=== PATIENT | female | born 1960 | race Caucasian/White ===

== ENCOUNTER 2019-04-30 22:21 | Emergency (ER) | payer SELFPAY ==
[~2019-04-30] VITALS: Ht 160 cm; Wt 99.3 kg
[2019-05-01] MEDS ORDERED: KETOROLAC 60 MG/2 ML VIAL IM ONE (00:15)
[2019-05-01] MEDS ORDERED: ORPHENADRINE 60 MG/2 ML (NORFLEX) AMP IM ONE (00:15)
[2019-05-01] MEDS ORDERED: TRAM-42 PO (01:06)
[2019-05-01] MEDS ORDERED: CYCL10TA9 PO (01:06)
[2019-05-01] MEDS ORDERED: METH4TAB PO (01:06)
--- NOTE | 2019-05-01 01:06 | ED Upper Extremity ---
General Chief Complaint: Upper Extremity Stated Complaint: R SHOULDER/ARM PAIN Nursing Triage Note: c/o RIGHT SHOULDER, ARM PAIN SINCE THIS AM DENIES INJURY. DENIES NUMBNESS OR TINGLING. PAIN OF 8/10. HAS USED HYDROCODONE AND IBUPROFEN AT HOME WITH LITTLE RELIEF. Nursing Sepsis Screen: No Definite Risk Source: patient History of Present Illness Date Seen by Provider: May 01, 2019 Time Seen by Provider: 00:01 Initial Comments PT ARRIVES VIA POV C/O RIGHT SHOULDER PAIN SINCE LAST PM, STATES PAIN BEGAN DURING THE NIGHT AND HAS CONTINUED ALL DAY TODAY NO INJURY NO PARESTHESIAS OR MOTOR DEFICITS NO NECK OR BACK PAIN NO RADIATION OF PAIN NO CHEST PAIN OR SHORTNESS OF BREATH STATES ANY MOVEMENT OF ARM CAUSES INCREASED PAIN NO PRIOR PROBLEMS WITH THIS SHOULDER PT IS RIGHT HANDED NO INJURY, BUT PT STATES THAT THEY JUST GOT BACK FROM [place] ON SUNDAY NIGHT, AND YESTERDAY, SHE UNLOADED THE CAR, LIFTING ALOT OF VERY HEAVY THINGS, ETC. STATES SHE TOOK HER 'S HYDROCODONE EARLIER TODAY AND IT HELPED A LITTLE BIT, DID IBUPROFEN, BUT HAS NOT TAKEN ANY MORE OF EITHER ONE OF THEM PCP: NONE Allergies and Home Medications Allergies Coded Allergies: codeine (Verified Allergy, Unknown, 05/01/19) Home Medications Cyclobenzaprine HCl 10 Mg Tablet, 10 MG PO Q8H Prescribed by: SAHIL RUSSELL on 05/01/19105 Methylprednisolone 4 Mg Tab.ds.pk, 4 MG PO UD Prescribed by: SAHIL RUSSELL on 05/01/19105 Tramadol HCl 50 Mg Tablet, 50 MG PO Q4H PRN for PAIN-MODERATE Prescribed by: SAHIL RUSSELL on 05/01/19105 Patient Home Medication List Home Medication List Reviewed: Yes Review of Systems Constitutional: no symptoms reported EENTM: no symptoms reported Respiratory: no symptoms reported Cardiovascular: no symptoms reported Gastrointestinal: no symptoms reported Genitourinary: no symptoms reported Musculoskeletal: see HPI Skin: no symptoms reported Psychiatric/Neurological: No Symptoms Reported Past Ggbznul-Zxulym-Cevxyn Hx Past Med/Social Hx: Reviewed and Corrections made Patient Social History Alcohol Use: Occasionally Uses Recreational Drug Use: No Smoking Status: Current Everyday Smoker (1 PPD) Type Used: Cigarettes (1 PPD) 2nd Hand Smoke Exposure: No Recent Foreign Travel: No Contact w/Someone Who Travel: No Recent Infectious Disease Expo: No Recent Hopitalizations: No Physical Abuse: No Sexual Abuse: No Mistreated: No Fear: No Seasonal Allergies Seasonal Allergies: No Past Medical History Surgeries: Yes (polypectomy of the esophagus/EGD;HYST/OVARIES INTACT;BLADDER SUSPENSION) Appendectomy, Bladder Surgery, Hysterectomy, Tubal Ligation Respiratory: No Cardiac: No Neurological: No : No Hx Para: 6 Reproductive Disorders: Yes (HYST FOR BENIGN DISEASE/OVARIES INTACT) BMET History: Hysterectomy, Tubal Ligation Genitourinary: No Gastrointestinal: No Musculoskeletal: No Endocrine: No HEENT: No Cancer: No Psychosocial: No Integumentary: No Blood Disorders: No Physical Exam Vital Signs Vital Signs - First Documented 04/30/19 23:12 Temp 36.4 Pulse 74 Resp 20 B/P (MAP) 142/80 (100) Pulse Ox 98 Capillary Refill : Less Than 3 Seconds Height, Weight, BMI Height: '" Weight: lbs. oz. kg; 38.00 BMI Method: General Appearance: WD/WN, no apparent distress, other (HOLDING RIGHT ARM VERY STIFFLY AND TIGHTLY AT HER SIDE.) Neck: non-tender, full range of motion, supple, normal inspection Cardiovascular: normal peripheral pulses, regular rate, rhythm, no edema, no JVD, no murmur Respiratory: chest non-tender, normal breath sounds, no respiratory distress, no accessory muscle use Gastrointestinal: non tender, soft Back: normal inspection, no CVA tenderness, no vertebral tenderness Shoulder: No asymmetry; bone tenderness; No deformity, No ecchymosis; limited ROM, pain, soft tissue tenderness; No swelling Elbow/Forearm: normal inspection, non-tender, no evidence of injury, normal ROM Wrist: Yes normal inspection, Yes non-tender, Yes no evidence of injury, Yes normal ROM Hand: normal inspection, non-tender, no evidence of injury, normal ROM Neurologic/Tendon: normal sensation, normal motor functions, normal tendon functions Neurologic/Psychiatric: exceptional student education aide II-XII nml as tested, no motor/sensory deficits, alert, oriented x 3 Skin: normal color, warm/dry; No rash Procedures/Interventions Splinting and Joint Reduction : Immobilizers: Large Shoulder Progress/Results/Core Measures Results/Orders My Orders Orders - SAHIL RUSSELL DO Ketorolac Injection (Toradol Injection) (05/01/19 00:15) Orphenadrine Injection (Norflex Injectio (05/01/19 00:15) Shoulder, Right, 3 Views (05/01/19 00:07) Shoulder Immoblizer (05/01/19 00:57) Medications Given in ED Current Medications Medications Dose Ordered Sig/Mikal Route Start Time Stop Time Status Last Admin Dose Admin Ketorolac Tromethamine 60 mg ONCE ONCE IM 05/01/19 00:15 05/01/19 00:16 DC 05/01/19 00:18 60 MG Orphenadrine Citrate 60 mg ONCE ONCE IM 05/01/19 00:15 05/01/19 00:16 DC 05/01/19 00:17 60 MG Vital Signs/I&O 04/30/19 05/01/19 23:12 01:15 Temp 36.4 Pulse 74 72 Resp 20 18 B/P (MAP) 142/80 (100) 127/69 (100) Pulse Ox 98 93 Blood Pressure Mean: 100 Diagnostic Imaging Comments XRAYS RIGHT SHOULDER--NO ACUTE PROCESS, PENDING RADIOLOGIST REVIEW Reviewed: Reviewed by Me Departure Impression Primary Impression: Right shoulder pain Disposition: HOME, SELF-CARE Condition: Improved Departure-Patient Inst. Referrals: NO,LOCAL PHYSICIAN (PCP) Primary Care Physician RUBY CARROLL MD,CHARLENE Wilkinson MD ORTHO 4 STATES Patient Instructions: How to Use a Shoulder Sling, Shoulder Pain (DC) Add. Discharge Instructions: WEAR SHOULDER IMMOBILIZER NEEDED FOR PAIN ALTERNATE ICE AND HEAT TO AREA AT 20 MINUTE INTERVALS FOLLOW UP WITH ORTHOPEDIC SURGEON OF CHOICE NEXT WEEK FOR FURTHER CARE--CALL IN AM FOR APPOINTMENT--DR. HARP, DR. CARROLL OR [facility]THO 4 STATES All discharge instructions reviewed with patient and/or family. Voiced understanding. Scripts Tramadol HCl (Ultram) 50 Mg Tablet 50 MG PO Q4H PRN for PAIN-MODERATE for 3 Days, TAB Prov: SAHIL RUSSELL DO 05/01/19 Methylprednisolone (Medrol) 4 Mg Tab.ds.pk 4 MG PO UD, #1 PKG Prov: SAHIL RUSSELL DO 05/01/19 Cyclobenzaprine HCl (Cyclobenzaprine HCl) 10 Mg Tablet 10 MG PO Q8H, #15 TAB Prov: ASHIL RUSSELL DO 05/01/19 SAHIL RUSSELL DO May 01, 2019 01:06
[2019-05-01 01:15] VITALS: BP 127/69
--- NOTE | 2019-05-01 06:40 | Diagnostic Imaging Report ---
INDICATION: Right shoulder injury 3 views of the right shoulder show no fracture or dislocation. IMPRESSION: No acute abnormality seen in the right shoulder. Dictated by: Dictated on workstation # [id number]
== END 2019-05-01 01:17 | disposition home or self-care (01) ==
LOC: ER 22:23
DX: M25.511 Pain in right shoulder (principal); F17.210 Nicotine dependence, cigarettes, uncomplicated; Z88.5 Allergy status to narcotic agent; Z90.49 Acquired absence of other specified parts of digestive tract; Z90.710 Acquired absence of both cervix and uterus; Z98.51 Tubal ligation status
CPT/HCPCS: 73030; 96372